=== PATIENT | female | born 1980 | race Caucasian/White ===

== ENCOUNTER 2024-03-07 14:25 | Emergency (ER) | payer SELFPAY ==
--- NOTE | ~2024-03-07 | XR_ITS ---
EXAMINATION: XR LUMBOSACRAL SPINE CLINICAL INFORMATION: Back pain. COMPARISON: None available. TECHNIQUE: 4 radiographs of the lumbosacral spine. FINDINGS: There are 5 nonrib-bearing lumbar vertebrae. Spinal alignment is anatomic in the sagittal projection. Vertebral body heights are maintained. There is minimal narrowing of the L5-S1 intervertebral disc space. Remaining intervertebral disc space heights are preserved. There is no acute fracture. The sacroiliac joints and symphysis pubis are maintained. XR/XR lumbar spine 2-3V IMPRESSION: No acute osseous lumbar spine abnormality. Minimal degenerative disc disease at L5-S1.
[2024-03-07 15:15] VITALS: BP 140/114; PULSE 80; RESP 16; TEMP 36.7; O2SAT 98; BMI 31.2
--- NOTE | 2024-03-07 15:21 | ED_ITS ---
HPI - Back Pain/Injury General Chief Complaint: Back Pain/Injury Stated Complaint: back pain Time Seen by Provider: 03/07/24 15:42 Source: patient Mode of arrival: ambulatory Limitations: no limitations History of Present Illness ED Provider: delfina WILHELM Narrative: Patient is a 43-year-old female presenting to the ED with complaint of left lower back pain since Monday. Denies fall or other trauma. Works at a [employer] and is frequently lifting. Occasional radiation of pain down left leg. Denies any weakness, numbness, or tingling to extremities. Denies saddle anesthesia or bowel or bladder incontinence. Denies fevers, IVDU, history of cancer. Has not taken any OTC medications but has tried hot showers and heating pad with little relief. MD elicited complaint: back pain Onset (ago): day(s) Timing: constant Severity: severe Similar Symptoms Previously: No Quality: aching Location: left lower back Radiation: left upper leg Exacerbating factors: movement Relieving factors: supine Treatments prior to arrival: heat therapy Related Data Previous Rx's ?Medication ?Instructions ?Recorded cyclobenzaprine 5 mg tablet 5 mg PO TID PRN muscle spasm #10 03/07/24 tabs lidocaine 5 % topical patch 1 patch topical DAILY #15 ea 03/07/24 prednisone 20 mg tablet 40 mg (2 x 20 mg) PO DAILY #10 tabs 03/07/24 Allergies Allergy/AdvReac Type Severity Reaction Status Date / Time No Known Allergies Allergy Verified 03/07/24 15:18 Review of Systems Review of Systems: As per HPI. Yes all other systems are reviewed and are negative Constitutional: Constitutional: Reports as per HPI Physical Exam Vital Signs: Vital Signs: Last Vital Signs Temp 98.0 F 03/07/24 15:15 Pulse 80 03/07/24 15:15 Resp 16 03/07/24 15:15 BP 140/114 H 03/07/24 15:15 Pulse Ox 98 03/07/24 15:15 O2 Del Method Room Air 03/07/24 15:15 BMI result Body Mass Index 31.2 Vital signs have been reviewed and appear to be correct. Blood pressure elevated. Heart rate normal. Respiratory rate normal. Temperature normal. Oxygen saturation normal. Const: General: cooperative, healthy appearing and no acute distress Orientation/consciousness: oriented to person, oriented to place, oriented to time and patient oriented x3 Limitations: no limitations HEENT: Head: Yes normocephalic and Yes atraumatic Ears: external ears normal General nose exam: Normal external nose present Face and sinus: Yes face symmetric Mouth: oropharynx normal and moist mucous membranes Throat: Yes uvula midline Eyes: Pupils: Equal, round and reactive pupils present Neck: Neck: Yes normal visual inspection and Yes supple Resp: Effort & Inspection: normal respiratory effort and able to speak in complete sentences Auscultation: clear to auscultation bilaterally Cardio: Rate: regular rate Rhythm: regular rhythm Heart sounds: S1 normal heart sound present and S2 normal heart sound present GI: Palpation (GI): Soft to palpation and nontender Auscultation: normoactive bowel sounds : General: Yes no CVA tenderness Back/Spine/Pelvis: Back: no CVA tenderness Thoracic/Lumbar Spine: thoracic and lumbar spine normal to inspection, thoraco-lumbar ROM normal, pain with thoraco-lumbar ROM, paraspinal muscle tenderness on the left in the mid lumbar, No thoracic spinal tenderness and No lumbar spinal tenderness Skin: General skin exam: elasticity normal and turgor normal Neuro: General: oriented to person, oriented to place, oriented to time, patient oriented x3, gait normal, tone normal, moves all extremities, Normal light touch and pain sensation, no focal motor deficits, CN's II-XI intact bilaterally and deep tendon reflexes 2+ bilaterally Cranial nerves: Yes Equal, round and reactive pupils present Cognition (Neuro): normal cognition Motor exam (neuro): Abnormal motor strength present (4/5) left lower extremity Extrem: General: Yes full ROM, Yes no pedal edema and Yes no calf tenderness Psych: Mental Status: mental status grossly normal Affect: normal affect Thought process: Normal thought process present Course Course Course Narrative: This is an RME: Additional HPI, ROS, PE not included below will be deferred to primary provider. RME assessment and note performed by: Lorene Alberto PA-C This is a 43-year-old female who presents emergency department with complaints of low back pain. Patient does a lot of bending and lifting at work. She has had pain since Monday. She has exquisite tenderness along her lumbar midline spine therefore x-rays were ordered. No history of substance use. Vital signs within normal limits. No red flag back symptoms. Plan x-ray Medical Decision Making Medical Decision Making MDM Narrative: Patient is a 43-year-old female presenting to the ED with complaint of left lower back pain since Monday. On exam patient is awake, A+Ox3, VS WNL, afebrile, normal neurological exam without focal deficits, physical exam findings as above. Given reported symptoms and physical exam findings, initial differential includes lumbar strain, lumbar radiculopathy, degenerative disc disease, disc herniation, spinal stenosis, spondylosis. Less likely vertebral fracture. Do not suspect malignancy/mass, SEA, cauda equina/cord compression. X-ray lumbar spine notable for mild DDD L5/S1. My interpretation is in agreement with the radiologist's interpretation. Results discussed with patient and all questions answered. Will treat with course of prednisone and cyclobenzaprine as well as topical lidocaine patches. Discussed with patient that if symptoms do not improve she should follow-up with PCP as she may need physical therapy to improve her symptoms. Return precautions discussed at bedside. Patient verbalized understanding of and agreement with plan. Differential Diagnosis Differential Diagnoses: The differential diagnosis associated with the presentation includes As per [facility]. Independent Interpretation I performed an independent interpretation of an: Plain X-Ray Interpretation: X-ray lumbar spine notable for mild DDD L5/S1. Radiology Impression Discussion of test interpretation with radiology: I have reviewed the radiologist's reading. Radiologist Impression: XR/XR lumbar spine 2-3V IMPRESSION: No acute osseous lumbar spine abnormality. Minimal degenerative disc disease at L5-S1. External Record Review External record reviewed: Inpatient record, Office record and Outpatient record Prescription Management I considered prescription management with: Pain Medication and Other Discharge Plan Discharge Clinical Impression: Strain of lumbar region Patient Disposition: Home, Self-Care Instructions: Low Back Strain (ED), Acute Low Back Pain (ED) Additional Instructions: You were evaluated in the emergency department today for back pain. Your evaluation did not show signs of medical conditions requiring emergent intervention at this time. We recommended that you use ibuprofen or Tylenol per package directions every 6 hours as needed for pain. If necessary, you can alternate these medications so that you take one medication every 3 hours. For instance, at noon take ibuprofen, then at 3:00 p.m. take Tylenol, then at 6:00 p.m. take ibuprofen. You are being prescribed a short course of steroids to decrease inflammation. You have been prescribed a muscle relaxer which you may take every 8 hours as needed for spasms. You have been prescribed 5% topical lidocaine patches which you can wear for up to 12 hours in a 24 hour period. Do not apply heat directly over the patches. Please schedule an appointment for follow-up with your primary care physician this week for further evaluation of your symptoms. Return to the emergency department if you experience worsening back pain, difficulty walking, fevers, numbness, tingling, incontinence, groin numbness or tingling, or any other concerning symptoms. Prescriptions: New prednisone 20 mg tablet 40 mg PO DAILY Qty: 10 0RF cyclobenzaprine 5 mg tablet 5 mg PO TID PRN (Reason: muscle spasm) Qty: 10 0RF lidocaine 5 % adhesive patch,medicated 1 patch topical DAILY Qty: 15 0RF Rx Instructions: leave on most painful area for up to 12 hrs Stand Alone Forms: Work/School Release Print Language: Azeri
[2024-03-07 17:04] VITALS: BP 135/89; PULSE 68; RESP 18; TEMP 36.7; O2SAT 99
== END 2024-03-07 17:05 | disposition home or self-care (01) ==
PROVIDERS: Emergency Provider Emergency Medicine
DX: S39.012A Strain of muscle, fascia and tendon of lower back, initial encounter (principal); X50.3XXA Overexertion from repetitive movements, initial encounter; Y93.89 Activity, other specified; Y92.9 Unspecified place or not applicable; Y99.0 Civilian activity done for income or pay
CPT/HCPCS: 72100; 99283; 99284

== ENCOUNTER 2024-08-26 11:38 | Emergency (ER) | payer MEDICAID, SELFPAY ==
--- NOTE | ~2024-08-26 | XR_ITS ---
EXAMINATION: XR HAND/WRIST, RIGHT CLINICAL INFORMATION: finger laceration COMPARISON: None available. TECHNIQUE: PA, lateral, and oblique views of the right hand and wrist. FINDINGS: The bones and soft tissues are normal. No fracture. Alignment is anatomic. Joint spaces are maintained. No erosions or soft tissue calcifications. Soft tissue defect in the webspace of the fourth and fifth digits. No radiopaque foreign body. XR/XR hand wrist RT IMPRESSION: 1. No acute bony abnormalities or malalignment. 2. No radiopaque foreign body seen. 3. Soft tissue laceration in the webspace of the fourth and fifth digits. Electronically signed by: Rony De Souza MD 08/26/2024 02:35 PM GAIL BRUCE
[2024-08-26 11:54] VITALS: BP 158/91; PULSE 86; RESP 16; TEMP 36.5; O2SAT 97; BMI 32.1
--- NOTE | 2024-08-26 11:56 | ED.SKABFB ---
HPI - Skin/Abscess/Foreign Bdy General Chief complaint: Wound/Laceration Stated complaint: finger lac Time Seen by Provider: 08/26/24 15:07 Source: patient Mode of arrival: ambulatory Limitations: no limitations History of Present Illness ED Provider: Servando Prather HPI narrative: 44-year-old female healthy presents to the ED for laceration in the webspace of right 5th and 4th finger caused by glass. Patient states she was cleaning her glass cup in the sink any broke and cut her finger. Patient denies any numbness/tingling of finger and complete range of motion. Patient denies any other trauma or complaints. Related Data Previous Rx's ?Medication ?Instructions ?Recorded cyclobenzaprine 5 mg tablet 5 mg PO TID PRN muscle spasm #10 03/07/24 tabs lidocaine 5 % topical patch 1 patch topical DAILY #15 ea 03/07/24 prednisone 20 mg tablet 40 mg (2 x 20 mg) PO DAILY #10 tabs 03/07/24 Allergies Allergy/AdvReac Type Severity Reaction Status Date / Time No Known Allergies Allergy Verified 08/26/24 11:57 Review of Systems Review of Systems: Finger laceration Yes all other systems are reviewed and are negative [facility] Social History Social History Advance Directives: No Advance Directives Information Provided: No Do you have a plan to hurt others: No Plan Physical Exam Vital Signs: Vital Signs: Last Vital Signs Temp 98.2 F 08/26/24 16:16 Pulse 82 08/26/24 16:16 Resp 18 08/26/24 16:16 BP 150/97 H 08/26/24 16:16 Pulse Ox 97 08/26/24 16:16 O2 Del Method Room Air 08/26/24 16:16 BMI result Body Mass Index 32.1 Const: General: cooperative, healthy appearing, comfortable and no acute distress Orientation/consciousness: patient oriented x3 HEENT: Head: Yes normal to inspection, Yes No palpable skull fracture present, Yes normocephalic and Yes atraumatic Eyes: General: appearance normal, both eyes and all related structures Neck: Neck: Yes normal visual inspection, Yes full ROM, Yes no lymphadenopathy, Yes no meningeal signs, Yes trachea midline, Yes supple, No anterior neck swelling and No tender Chest: Chest palpation & inspection: normal inspection of the chest and normal palpation of entire chest wall Resp: Effort & Inspection: normal respiratory effort and able to speak in complete sentences Auscultation: clear to auscultation bilaterally Cardio: Jugular venous distension: no JVD Heart sounds: S1 normal heart sound present and S2 normal heart sound present GI: Inspection: Yes normal to inspection Palpation (GI): Soft to palpation, not firm, nontender, no guarding and not rigid : General: Yes no CVA tenderness Back/Spine/Pelvis: Back: no CVA tenderness and No back tenderness Skin: General skin exam: no rashes or lesions noted, elasticity normal and turgor normal Neuro: General: patient oriented x3, gait normal, tone normal, moves all extremities, Normal light touch and pain sensation, no meningeal signs, no focal motor deficits, CN's II-XI intact bilaterally and normal sensation to monofilament Extrem: General: Yes normal to inspection, Yes full ROM and Yes capillary refill normal Hand/finger images: 1. Laceration between web space of 4th and 5th finger. Patient has complete range of motion of all fingers and capillary refill intacts. Negative for signs of nerve or tendon injury. Negative for pulsatile bleeding. Bleeding controlled. Rest of extremity normal. Motor/neuro/vascular exam intact Psych: Appearance: grossly normal, well kempt and not disheveled Course Course Course Narrative: This is an RME: Additional HPI, ROS, PE not included below will be deferred to primary provider. RME assessment and note performed by: Lorene Alberto PA-C This is a [id number]-female who presents to the ER with complaints of right hand laceration since this am. She lacerated between her 4th and 5th digit. Reports she lacerated this on a broken piece of glass. Reports burning sensation in her finger. Unsure if her TDAP is UTD. Plan: needs sutures Medications Administered Discontinued Medications Generic Name Dose Route Start Last Admin Trade Name Freq PRN Reason Stop Dose Admin Bacitracin 1 appl 08/26/24 15:48 08/26/24 15:56 Bacitracin Oint 0.9 Gm Packet TOPICAL 08/26/24 15:49 1 appl ONCE ONE Administration Protocol Diphtheria/Tetanus/Acell Pertussis 0.5 ml 08/26/24 11:57 08/26/24 13:47 Diphth,Pertus(Acell),Tet Adult 0.5 Ml Syringe IM 08/26/24 11:58 0.5 ml .ONCE ONE Administration Lidocaine HCl 5 ml 08/26/24 11:58 08/26/24 13:47 Lidocaine Hcl 1 % Mpf 5 Ml Vial SUBCUT 08/26/24 11:59 5 ml ONCE ONE Administration Medical Decision Making Medical Decision Making [facility] Narrative: 44-year-old female presents to ED for laceration in between 4th and 5th finger. X-ray negative for any foreign body or fractures. Wound cleaned with sterile saline and Betadine iodine. 5 mL lidocaine 1% used for digital block. Nylon size 4 sutures used for suture repair. Three sutures placed. Patient given tetanus shot. Patient explained worrisome signs and informed to return to the ED immediately. Not suspecting nerve tendon injury. Not suspecting tenosynovitis, cellulitis, osteomyelitis, dislocation, or any other life-threatening etiology. Differential Diagnosis Differential Diagnoses: The differential diagnosis associated with the presentation includes (Laceration) Admission/Observation Consideration of admission/observation: Escalation of care including admission/observation considered Independent Interpretation I performed an independent interpretation of an: Plain X-Ray Radiology Impression Discussion of test interpretation with radiology: I have reviewed the radiologist's reading. Independent Historian Clinical information obtained from an independent historian. History obtained from or confirmed by: Other (Patient) External Record Review External record reviewed: Other (Prior visit) Discharge Plan Discharge Clinical Impression: Laceration Patient Disposition: Home, Self-Care Instructions: Laceration (ED) Additional Instructions: Sutures should remain dry the 1st 48 hours. Sutures should be removed in about 10 days. Return to the ED immediately for any redness, pus discharge, foul odor, stiffness, bluish black discoloration, fever, chills, numbness/tingling, any other concerning symptoms. Recommend follow up with primary care provider Prescriptions: No Action prednisone 20 mg tablet 40 mg PO DAILY Qty: 10 0RF cyclobenzaprine 5 mg tablet 5 mg PO TID PRN (Reason: muscle spasm) Qty: 10 0RF lidocaine 5 % adhesive patch,medicated 1 patch topical DAILY Qty: 15 0RF Rx Instructions: leave on most painful area for up to 12 hrs Stand Alone Forms: Work/School Release Interventions: ED Discharge Assessment Last Done: 08/26/24 16:16 Discharge Date/Time: 08/26/24 16:17 Print Language: Georgian
--- NOTE | 2024-08-26 13:42 | PC.NURSE ---
a&ox4. vss and up to date. pt presents to the ED after she was washing dishes in the sink where a glass then broke and slit her finger open between 4th and 5th metatarsal on right hand. bleeding controlled upon arrival. -thinners. pt states she is unaware if tetanus is up to date at this time. ROM intact. pulses palpable. denies any numbness/tingling. pt on RA w/o difficulty - no sob/wob noted. respirations even/unlabored. plan of care ongoing. call malcolm placed within reach.
[2024-08-26] MEDS: Diphth,Pertus(ACell),Tet Adult 0.5 ML SYRINGE IM (13:47)
[2024-08-26] MEDS: Lidocaine HCl 1 % MPF 5 ML VIAL SUBCUT (13:47)
--- NOTE | 2024-08-26 13:55 | PC.NURSE ---
delay in medication administration as pt was in triage. pt now medicated per provider order.
[2024-08-26] MEDS: Bacitracin Oint 0.9 GM PACKET 1 APPL TOPICAL (15:56)
[2024-08-26 16:03] VITALS: BP 150/97; PULSE 82; RESP 18; TEMP 36.8; O2SAT 97
--- NOTE | 2024-08-26 16:04 | PC.NURSE ---
bacitracin, nonstick abd pad, and gauze applied to pt's right hand s/p suture placement by provider. pt tolerated well. vital signs remain stable and up to date prior to d/c.
[2024-08-26 16:16] VITALS: BP 150/97; PULSE 82; RESP 18; TEMP 36.8; O2SAT 97
== END 2024-08-26 16:17 | disposition home or self-care (01) ==
PROVIDERS: Emergency Provider Emergency Medicine
DX: S61.411A Laceration without foreign body of right hand, initial encounter (principal); M25.531 Pain in right wrist; W25.XXXA Contact with sharp glass, initial encounter; Y93.89 Activity, other specified; Y92.000 Kitchen of unspecified non-institutional (private) residence as the place of occurrence of the external cause; Y99.8 Other external cause status; Z23 Encounter for immunization
CPT/HCPCS: 12001; 73110; 73130; 90471; 90715; 99283; 99284; J2003